=== PATIENT | female | born 2000 | race Two or more races ===

== ENCOUNTER 2024-05-15 14:52 | Emergency (ER) | payer OTHER ==
[~2024-05-15] VITALS: Ht 149.9 cm; Wt 69.6 kg
[2024-05-15 16:05] VITALS: BP 123/82; PULSE 97; RESP 15; TEMP 97.9; O2SAT 96
[2024-05-15] MEDS: FLUORESCEIN SOD OPTH TEST STRIP RIGHTEYE ONE (16:10)
[2024-05-15] MEDS ORDERED: TOBR1SUS11 RIGHTEYE (16:20)
--- NOTE | 2024-05-15 16:20 | ED.PDOC ---
Eye-HPI HPI Comments This is a 24-year-old female who comes in with a red eye she fell asleep with her contact lens last night woke up with extreme pain and drainage.. She is not sure if it is scratched or not. But she has had problems with pinkeye in the last couple of months. Chief Complaint: Eye Problem Time Seen by MD: 15:46 Primary Care Provider: DONNELL Reviewed Notes: Nurses Notes, Medications, Allergies Allergies: Coded Allergies: NO KNOWN ALLERGIES (Unverified , 05/15/24) Information Source: Patient Mode of Arrival: Ambulatory Past Medical History Past Medical History (Other): Gestational diabetes Surgical History: Social History Smoker: Non-Smoker Alcohol: Denies ETOH Use Drugs: Denies Drug Use Lives In: Home Constitutional: denies: chills, diaphoresis, fatigue, fever, malaise, sweats, weakness, others EENTM: reports: blurred vision, eye pain, eye redness Respiratory: denies: cough, hemoptysis, orthopnea, SOB at rest, shortness of breath, SOB with excertion, stridor, wheezing, others Cardiovascular: denies: chest pain, dizzy spells, diaphoresis, Dyspnea on exertion, edema, irregular heart beat, left arm pain, lightheadedness, palpitations, PND, syncope, others Genitourinary: denies: abnormal vagina bleeding, burning, dyspareunia, dysuria, flank pain, frequency, hematuria, incontinence, pain, , vagina discharge, urgency, others Neurological: denies: dizziness, fainting, headache, left sided numbness, left sided weakness, numbness, paresthesia, pre-existing deficit, right sided numbness, right sided weakness, seizure, speech problems, tingling, tremors, weakness, others Musculoskeletal: denies: back pain, gout, joint pain, joint swelling, muscle pain, muscle stiffness, neck pain, others Integumetry: denies: bruises, change in color, change in hair/nails, dryness, laceration, lesions, lumps, rash, wounds, others Allergic/Immunocompromised: denies: Difficulty Healing, Frequent Infections, Hives, Itching, others Hematologic/Lymphatic: denies: anemia, blood clots, easy bleeding, easy bruising, swollen glands, others Endocrine: denies: excessive hunger, excessive sweating, excessive thirst, excessive urination, flushing, intolerance to cold, intolerance to heat, unexplained weight gain, unexplained weight loss, others Psychiatric: denies: anxiety, bipolar disorder, depression, hopeless, panic disorder, schizophrenia, sleepless, suicidal, others Physical Exam General Appearance: No Apparent Distress, None HEENT: Cornea (R) (Conjunctiva right eye red draining), Eye Lid (R) Neck: Non-Tender, Normal, Normal Inspection Respiratory: Lungs Clear, No Respiratory Distress, Normal Breath Sounds Cardiovascular: Regular Rate/Rhythm Breast Exam: Deferred Gastrointestinal: Non Tender, Normal Bowel Sounds Genitalia: Deferred Pelvic: Deferred Rectal: Deferred Extremities: Normal inspection, Normal range of motion Neurologic: Alert, Normal Affect, Normal Mood Cerebellar Function: Normal Reflexes: NOT DONE Skin: Dry, Warm Lymphatic: No Adenopathy Was a procedure done? Was a procedure done?: Yes Sedation Sedation?: No Informed consent obtained: No Other Procedure Procedure Wood's lamp exam Indication Rule out corneal abrasion Anesthetic Tetracaine 1 drop to the right eye Prep none Success No corneal abrasion noted, patient tolerated procedure well without any discomfort EENT DIFF Eye: Corneal Abrasion X-Ray, Labs, Meds, VS Vital Signs Date Time Temp Pulse Resp B/P (MAP) Pulse Ox O2 Delivery O2 Flow Rate FiO2 05/15/24 16:05 97.9 97 15 123/82 (96) 96 97.9 05/15/24 15:13 97.9 97 15 123/82 (96) 96 X-Ray, Labs, Meds, VS Comment Patient seen and examined by me. Patient fell asleep last night and left her contact lens in causing a significant conjunctivitis of the right eye. A Wood's lamp exam showed no corneal abrasion. Patient will be placed on Ocuflox drops I told her no contact lenses until all the medications are completed. Time of 1ST Reevaluation: 16:17 Reevaluation 1ST: Improved Patient Education/Counseling: Diagnosis, Treatment, Prognosis, Need For Follow Up Family Education/Counseling: Diagnosis, Treatment, Prognosis, Need For Follow Up Departure 1 Departure Time of Disposition: 16:17 Impression: Primary Impression: Conjunctivitis Disposition: 01 HOME / SELF CARE / HOMELESS Condition: Good Additional Instructions: Use the eyedrops as directed to the right eye Wash her hands often to prevent spread to the left eye If the infection Spreads it is okay to use the same eyedrops No contact lenses until the infection is completely gone e-Prescriptions Tobramycin-Dexamethasone (Tobradex St) Op Amy 1 DROP RIGHTEYE QID for 5 Days, #5 ML Prov: SAVANA ROBLES 05/15/24 Discharged With: Self, Relative (Mother) Critical Care Note Critical Care Time?: No Stability Stability form required: No SAVANA ROBLES May 15, 2024 16:20
== END 2024-05-15 16:20 | disposition home or self-care (01) ==
LOC: ER 14:52
DX: H10.9 Unspecified conjunctivitis (principal); Z98.890 Other specified postprocedural states